=== PATIENT | female | born 1995 | race Caucasian/White ===

== ENCOUNTER 2023-12-31 15:30 | Emergency (ER) | payer SELFPAY ==
[2023-12-31 15:53] VITALS: BP 138/64; PULSE 97; RESP 17; TEMP 36.7; O2SAT 98; BMI 25.9
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
[2023-12-31] MEDS: INSULIN LISPRO 100 UNIT/ML 3ML VIAL 20 UNIT SUBCUT (16:14)
[2023-12-31 16:27] VITALS: BP 138/60; PULSE 95; RESP 17; O2SAT 99
== END 2023-12-31 16:28 | disposition home or self-care (01) ==
PROVIDERS: Emergency Provider Emergency Medicine
DX: E11.65 Type 2 diabetes mellitus with hyperglycemia (principal); Z76.0 Encounter for issue of repeat prescription
CPT/HCPCS: 82962; 96372; 99281; 99283; J1815